=== PATIENT | male | born 2000 | race Caucasian/White ===

== ENCOUNTER → 2021-12-12 | Outpatient (CLI) | payer BC ==
--- NOTE | 2021-12-12 11:24 | RAD ---
EXAMINATION: XR EXAM OF ANKLE_LEFT 3V. HISTORY: 21 years Male Reason: INJURED LT ANKLE PLAYING BASKETBALL. Left ankle pain. COMPARISON: None. FINDINGS: No fracture, dislocation or radiopaque foreign body. The joint spaces and articular surfaces appea r unremarkable. There is mild lateral soft tissue swelling. IMPRESSION: No fracture seen. Electronically signed by: Roger Del Rio MD (12/12/2021 11:22 AM) [id number]
== END ==
LOC: RAD 10:30
PROVIDERS: ATTEND Nurse Practitioner Family
DX: S99.912A Unspecified injury of left ankle, initial encounter (principal); M79.89 Other specified soft tissue disorders; X58.XXXA Exposure to other specified factors, initial encounter; Y93.89 Activity, other specified; Y92.89 Other specified places as the place of occurrence of the external cause; Y99.8 Other external cause status
CPT/HCPCS: 73610